=== PATIENT | female | born 1960 | race African-American/Black ===

== ENCOUNTER 2018-05-22 11:36 | Emergency (ER) | payer OTHER ==
[~2018-05-22] VITALS: Ht 175.3 cm; Wt 88.9 kg
--- NOTE | ~2018-05-22 | EKG ---
[place] [address] [facility] [place] [address] ELECTROCARDIOGRAM REPORT Name: TE KING Room #: [facility]#: [id number] Admission: 05/22/18 Attend Phys: Discharge: 05/22/18 Date of : 58 Report #: [id number] THIS REPORT FOR: //name// [facility] ED Test Date: 2018-05-22 Test Time: 12:40:16 Pat Name: TE KING Department: Room: Gender: F Chemistry Lab Instructor: : [id number] Requested By: Dana Anna Order Number: [id number] MD: Terrence Loza Measurements Intervals [place] Rate: 79 P: NM: QRS: -5 QRSD: 133 T: -52 QT: 404 QTc: 464 Interpretive Statements Atrial fibrillation Nonspecific T wave abnormality Early R-wave progression No previous ECG available for comparison Electronically Signed On 05-23-2018 7:46:45 EMBEDDED ENGINEER by Terrence Loza [email or web address] <ELECTRONICALLY SIGNED> By: Terrence Loza MD, [facility] 05/23/18 0746 1240 1240 Terrence Loza MD, FACC /EPI
[~2018-05-22 11:36] MED LIST: ALDACTONE25 MG PO; ATIVAN0.5 MG PO; CARVEDILOL25 MG PO; DEMADEX20 MG PO; KLOR-CON 1010 MEQ PO; LEVOTHYROXINE 0.15MG PO; MAG-OXIDE400 MG PO; MAGNESIUM OXID400 MG PO; SYNTHROID150 MCG PO
[2018-05-22 13:10] LABS: ABSOLUTE NEUTROPHILS 4.1 thou/uL (1.4-8.2); EOSINOPHILS 1.7 % (0.0-3.0); HEMATOCRIT 31.8 % (37.0-47.0); HEMOGLOBIN 10.9 gm/dL (12.0-15.0); LYMPHOCYTES 21.8 % (24.0-44.0); MCH 33.7 pg (26.0-34.0); MCHC 34.4 g/dL (28.0-37.0); MCV 98.2 fL (80.0-100.0); MONOCYTES 7.8 % (1.0-8.0); PLATELET COUNT 272 thou/uL (150-400); POLYS 67.7 % (36.0-66.0); RBC 3.24 mil/uL (4.20-5.00); RDW 14.7 % (10.5-14.5)
[2018-05-22 13:21] LABS: ANION GAP 9 mmol/L (7-16); BUN 17 mg/dL (7-18); CALCIUM 9.4 mg/dL (8.5-10.1); CHLORIDE 101 mmol/L (98-107); CO2 29 mmol/L (21-32); CREATININE 1.4 mg/dL (0.6-1.0); GLUCOSE 122 mg/dL (74-106); POTASSIUM 3.8 mmol/L (3.5-5.1); SODIUM 139 mmol/L (136-145)
[2018-05-22 13:26] LABS: ALBUMIN 3.8 g/dL (3.4-5.0); SGOT 24 U/L (15-37); SGPT 23 U/L (30-65); TOTAL BILIRUBIN 0.4 mg/dL (<0.1-1.0); TOTAL PROTEIN 8.7 g/dL (6.4-8.2); TROPONIN-I <0.06 ng/mL (<0.06)
[2018-05-22 15:01] VITALS: BP 133/88
== END 2018-05-22 15:05 | disposition left against medical advice (07) ==
LOC: ER 11:36
PROVIDERS: Physician Assistant
DX: R55 Syncope and collapse (principal); R07.89 Other chest pain; I11.0 Hypertensive heart disease with heart failure; I50.9 Heart failure, unspecified; R42 Dizziness and giddiness; I07.1 Rheumatic tricuspid insufficiency; I48.91 Unspecified atrial fibrillation; I42.9 Cardiomyopathy, unspecified; Z95.2 Presence of prosthetic heart valve; Z88.0 Allergy status to penicillin